=== PATIENT | male | born 1970 | race Caucasian/White ===

== ENCOUNTER 2016-08-29 06:17 | Emergency (ER) | payer OTHER ==
[2016-08-29] MEDS ORDERED: PERCOCET 10-321 EACH PO ×2 (06:32→10:39)
[2016-08-29] MEDS ORDERED: GABAPENTIN300 M1 PO (10:39)
== END 2016-08-29 11:20 ==
LOC: EDMED 06:17
DX: S12.600A Unspecified displaced fracture of seventh cervical vertebra, initial encounter for closed fracture (principal); M54.12 Radiculopathy, cervical region; J45.909 Unspecified asthma, uncomplicated; W10.9XXA Fall (on) (from) unspecified stairs and steps, initial encounter